=== PATIENT | female | born 1945 ===

== ENCOUNTER 2017-10-19 13:00 | Inpatient (IN) | payer OTHER ==
[~2017-10-19] VITALS: Ht 154.9 cm; Wt 58.5 kg
[2017-10-20] MEDS ORDERED: SEROQUEL50 MG PO (09:30)
[2017-10-24] MEDS ORDERED: DOCUSATE SODIU100 MG PO (12:40)
[2017-10-24] MEDS ORDERED: GABAPENTIN800 MG PO (12:40)
[2017-10-24] MEDS ORDERED: AMOX-CLAV 875-1 EACH PO (12:41)
[2017-10-24] MEDS ORDERED: CLONAZEPAM1 MG PO (12:42)
[2017-10-24] MEDS ORDERED: PERCOCET 5-3251 EACH PO (12:42)
[2017-10-24] MEDS ORDERED: MEDROLPACK PO (12:42)
== END 2017-10-24 15:35 | disposition home or self-care (01) | DRG 455 ==
LOC: PED 10-23 05:01 → O/R 10-23 05:01 → SURG 10-23 13:00 → PED 10-23 14:56 → SURG 10-23 16:45 → PED 10-24 15:35
PROVIDERS: Orthopaedic Surgery Orthopaedic Surgery of the Spine
PROC: 0SG1071 Fusion of 2 or more Lumbar Vertebral Joints with Autologous Tissue Substitute, Posterior Approach, Posterior Column, Open Approach (ICD-10-PCS; 2017-10-23)
PROC: 0SG10A0 Fusion of 2 or more Lumbar Vertebral Joints with Interbody Fusion Device, Anterior Approach, Anterior Column, Open Approach (ICD-10-PCS; 2017-10-23)
PROC: 0ST20ZZ Resection of Lumbar Vertebral Disc, Open Approach (ICD-10-PCS; 2017-10-23)
PROC: 07DS3ZZ Extraction of Vertebral Bone Marrow, Percutaneous Approach (ICD-10-PCS; 2017-10-23)
PROC: 0SG10AJ Fusion of 2 or more Lumbar Vertebral Joints with Interbody Fusion Device, Posterior Approach, Anterior Column, Open Approach (ICD-10-PCS; principal; 2017-10-23 16:45)
DX: M47.26 Other spondylosis with radiculopathy, lumbar region (principal); M48.061 Spinal stenosis, lumbar region without neurogenic claudication; M51.16 Intervertebral disc disorders with radiculopathy, lumbar region; M41.56 Other secondary scoliosis, lumbar region; E03.8 Other specified hypothyroidism

== ENCOUNTER 2020-06-10 10:45 | Inpatient (IN) | payer OTHER ==
[~2020-06-10] VITALS: Ht 154.9 cm; Wt 59.0 kg
[~2020-06-10 10:45] MED LIST: AMOX-CLAV 875-1 EACH PO; CLONAZEPAM1 MG PO; DOCUSATE SODIU100 MG PO; GABAPENTIN800 MG PO; MEDROLPACK PO; PERCOCET 5-3251 EACH PO; SEROQUEL50 MG PO
[2020-06-17] MEDS ORDERED: QUETIAPINE FUM100 MG (13:04)
[2020-06-17] MEDS ORDERED: CENTRUM SILVER1 EAC3 (13:04)
[2020-06-17] MEDS ORDERED: CLONAZEPAM0.5 MG (13:04)
[2020-06-17] MEDS ORDERED: PANTOPRAZOLE SO40 MG (13:04)
[2020-06-17] MEDS ORDERED: VITAMIN D350 MCG (13:05)
[2020-06-17] MEDS ORDERED: PERCOCET 5-3251 EACH PO (13:12)
[2020-06-17] MEDS ORDERED: AMOX-CLAV 875-1 EAC1 PO (13:12)
[2020-06-17] MEDS ORDERED: MEDROLPACK PO (13:12)
[2020-06-17] MEDS ORDERED: DIAZEPAM5 MG PO (13:12)
[2020-06-17] MEDS ORDERED: NEURONTIN800 MG PO (13:12)
[2020-06-17] MEDS ORDERED: COLACE100 MG PO (13:12)
== END 2020-06-18 18:37 | disposition home or self-care (01) | DRG 455 ==
LOC: SURH 06-17 06:30 → SURG 06-17 08:01 → O/R 06-17 08:01 → SURH 06-17 10:45 → SURG 06-17 14:38
PROVIDERS: ADMIT Orthopaedic Surgery Orthopaedic Surgery of the Spine; ATTEND Orthopaedic Surgery Orthopaedic Surgery of the Spine
PROC: XRGB0F3 Fusion of Lumbar Vertebral Joint using Radiolucent Porous Interbody Fusion Device, Open Approach, New Technology Group 3 (ICD-10-PCS; 2020-06-17)
PROC: 0SG00J1 Fusion of Lumbar Vertebral Joint with Synthetic Substitute, Posterior Approach, Posterior Column, Open Approach (ICD-10-PCS; 2020-06-17)
PROC: 07DR3ZZ Extraction of Iliac Bone Marrow, Percutaneous Approach (ICD-10-PCS; 2020-06-17)
PROC: 0ST20ZZ Resection of Lumbar Vertebral Disc, Open Approach (ICD-10-PCS; principal; 2020-06-17 06:30)
DX: M41.86 Other forms of scoliosis, lumbar region (principal); M43.16 Spondylolisthesis, lumbar region; M48.062 Spinal stenosis, lumbar region with neurogenic claudication